=== PATIENT | female | born 1945 | race African-American/Black ===

== ENCOUNTER → 2018-08-05 | Outpatient (CLI) | payer MEDICARE, BC ==
[~2018-08-05] MED LIST: ASPI325T8 PO; ATORVASTATIN CA80 MG PO; FURO-68 PO; LOSA-73 PO; LOSA100T14 PO; LOSA25TA54 PO; METO50TA6 PO; POTA10TA31 PO
--- NOTE | 2018-08-05 13:44 | CARD ---
MR#: [id number] Date of Study: 08/05/2018 Ordering Physician: JOHNNIE AGUILERA, Referring Physician: JOHNNIE AGUILERA, Tech: Milady Jay [facility] APPROVED REPORT EXAM: Two-dimensional and M-mode echocardiogram with Doppler and color Doppler. Other Information Quality : AverageHR: 82bpm Rhythm : NSR INDICATION Shortness of breath 2D DIMENSIONS RVDd3.2 (2.9-3.5cm)Left Atrium(2D)4.3 (1.6-4.0cm) IVSd1.7 (0.7-1.1cm)Aortic Root(2D)2.6 (2.0-3.7cm) LVDd3.8 (3.9-5.9cm)LVOT Diameter1.8 (1.8-2.4cm) PWd1.1 (0.7-1.1cm)LVDs2.7 (2.5-4.0cm) FS (%) 29.9 %SV36.6 ml LVEF(%)57.7 (>50%) M-Mode DIMENSIONS Left Atrium(MM)4.89 (2.5-4.0cm)Aortic Root2.85 (2.2-3.7cm) Aortic Valve AoV Peak Keyur.221.1cm/sAoV VTI41.9cm AO Peak GR.19.6mmHgLVOT Peak Keyur.96.7cm/s AO Mean GR.8mmHgAVA (VMAX)1.13cm2 MAXIMILIAN (VTI)1.10cm2 Mitral Valve MV E Poefpvjn05.8cm/sMV DECEL PVFY886ef MV A Chpoptiy185.2cm/sE/A Ratio1.0 MV A Pwwntlam710be Pulmonary Valve PV Peak Dkxvsign387.2cm/s Tricuspid Valve TR P. Lsebxisv462mx/sRAP OYKYAMXN53icPi TR Peak Gr.13uvNpABGS35esCr LEFT VENTRICLE The left ventricle is normal size. Proximal septal thickening is noted. The left ventricular systolic function is normal. The Ejection Fraction is 55-60%. There is normal LV segmental wall motion. Trans mitral Doppler flow pattern is Grade II-pseudonormal filling dynamics. RIGHT VENTRICLE The right ventricle is normal size. There is normal right ventricular wall thickness. The right ventr icular systolic function is normal. ATRIA The left atrium is mildly dilated. The right atrium is mildly dilated. The interatrial septum is inta ct with no evidence for an atrial septal defect or patent foramen ovale as noted on 2-D or Doppler im aging. AORTIC VALVE The aortic valve is calcified but opens well. The aortic valve is trileaflet. Doppler and Color Flow revealed no significant aortic regurgitation. There is no significant aortic valvular stenosis. MITRAL VALVE The mitral valve is normal in structure and function. There is no evidence of mitral valve prolapse. There is no mitral valve stenosis. Doppler and Color-flow revealed mild mitral regurgitation. TRICUSPID VALVE The tricuspid valve is normal in structure and function. Doppler and Color Flow revealed mild tricusp id regurgitation. There is severe pulmonary hypertension. The PA pressure was estimated at 78 mmHg. T here is no tricuspid valve prolapse or vegetation. There is no tricuspid valve stenosis. PULMONIC VALVE The pulmonary valve is normal in structure and function. Doppler and Color Flow revealed no pulmonic valvular regurgitation. There is no pulmonic valvular stenosis. GREAT VESSELS The aortic root is normal in size. The ascending aorta is normal in size. The IVC is dilated and scott apses <50% with inspiration. PERICARDIAL EFFUSION There is no evidence of significant pericardial effusion. Critical Notification Critical Value: No <Conclusion> The left ventricular systolic function is normal. The Ejection Fraction is 55-60%. There is normal LV segmental wall motion. The left atrium is mildly dilated. Mild mitral regurgitation. Mild tricuspid regurgitation. There is severe pulmonary hypertension. The PA pressure was estimated at 78 mmHg. There is no evidence of significant pericardial effusion. Signed by : Nav Ha, Electronically Approved : 08/05/2018 13:44:14
== END | disposition home or self-care (01) ==
LOC: ECHO 12:45
PROVIDERS: ATTEND Internal Medicine Cardiovascular Disease
DX: I08.1 Rheumatic disorders of both mitral and tricuspid valves (principal); I27.20 Pulmonary hypertension, unspecified; I25.810 Atherosclerosis of coronary artery bypass graft(s) without angina pectoris
CPT/HCPCS: 93306

== ENCOUNTER → 2019-03-10 | Outpatient (CLI) | payer MEDICARE, BC ==
[~2019-03-10] MED LIST changes: +ZOLPIDEM 5 MG TABLET. PO ONE
--- NOTE | 2019-03-18 09:48 | SLEEP ---
DATE OF STUDY: 03/10/2019 ATTENDING PHYSICIAN: Caesar Ascencio MD. REFERRING PHYSICIAN: Lawrence Lund MD. The patient is 73 years old, who weighs 258 pounds with a BMI of 42. The patient's Cruger score was 12. The patient had sleep study 5 years ago and was positive for AZAM, but has gained more than 50 pounds since then, with return of daytime hypersomnia and this split night study was performed. During the night study, the patient spent 415 minutes in bed and slept for 365 minutes with a sleep efficiency of 88%. Sleep latency was 7 minutes with a REM latency of 132 minutes. Sleep architecture showed normal stage 1 and stage 2 sleep, normal slow wave, and normal REM sleep. During the initial diagnostic portion of the study, the patient slept for 74 minutes. During that time, the patient had no obstructive mixed or central apneas, but 56 hypopneas. The patient's apnea-hypopnea index was 46 per hour with a supine index of 46 per hour. REM sleep was not seen during the diagnostic portion. EKG monitoring revealed an average heart rate of 88 beats per minute, no sustained arrhythmias observed. Nocturnal oximetry study revealed an average oxygen saturation of 97% with the lowest of 77%. A 14% of time oxygen saturation remained less than 90%. No PLMS observed. The patient met the criteria for CPAP initiation. It was started at 5 cm water and titrated up to 18 cm water. At the final pressure, the patient slept for 52 minutes. The patient has had supine sleep, but very minimal REM sleep. The patient's AHI was reduced to 0 per hour and oxygen saturation remained above 95%. The patient used a medium size full face mask. IMPRESSION: 1. Severe sleep apnea-hypopnea syndrome at an AHI of 46 per hour. 2. Nocturnal hypoxia secondary to obstructive sleep apnea, but resolved with CPAP. 3. No clinically significant periodic limb movements. RECOMMENDATIONS: 1. CPAP at 18 cm water completely eliminated the patient's sleep apnea and should be used on a nightly basis. 2. Follow up in 4-6 weeks to assess compliance with CPAP and to document clinical improvement. 3. Weight loss is strongly advised. 4. Avoid 3D SPECIALIST depressants. 5. Cautioned regarding driving until symptoms of sleep apnea resolve with the use of CPAP. ANKUSH HILL MD DR: GERMAIN/junaid JOB#: [id number] / [id number] CAESAR Alvarado MD, GEORGE MD
== END | disposition home or self-care (01) ==
LOC: SLPLAB 18:33
PROVIDERS: ATTEND Internal Medicine Pulmonary Disease
DX: G47.33 Obstructive sleep apnea (adult) (pediatric) (principal); G47.34 Idiopathic sleep related nonobstructive alveolar hypoventilation
CPT/HCPCS: 95810

== ENCOUNTER → 2019-11-10 | Outpatient (CLI) | payer MEDICARE, BC ==
[~2019-11-10] MED LIST changes: -ZOLPIDEM 5 MG TABLET. PO ONE
--- NOTE | 2019-11-10 12:18 | CARD ---
MR#: [id number] Date of Study: 11/10/2019 Ordering Physician: ALESSANDRO ALLAN, Referring Physician: ALESSANDRO ALLAN, Tech: Casi Farmer APPROVED REPORT EXAM: Two-dimensional and M-mode echocardiogram with Doppler and color Doppler. Other Information Quality : FairHR: 83bpm Technically limited study due to body habitus. INDICATION Pulmonary Hypertention RISK FACTORS Hypertension 2D DIMENSIONS RVDd3.4 (2.9-3.5cm)Left Atrium(2D)3.6 (1.6-4.0cm) IVSd1.1 (0.7-1.1cm)Aortic Root(2D)2.9 (2.0-3.7cm) LVDd4.8 (3.9-5.9cm)PWd1.0 (0.7-1.1cm) LVDs3.3 (2.5-4.0cm)FS (%) 31.9 % SV65.8 ml Aortic Valve AoV Peak Keyur.197.7cm/sAoV VTI39.6cm AO Peak GR.15.6mmHgLVOT Peak Keyur.128.3cm/s LVOT VTI 28.80cmAO Mean GR.9mmHg Mitral Valve MV E Vijzveqz714.1cm/sMV DECEL HPAE509tm MV A Yqptrtmz55.9cm/sMV E Mean Gr.2mmHg MV LZB11tmX/A Ratio2.1 MVA (PHT)5.38cm2 TDI E/Lateral E'15.4E/Medial E'12.3 Pulmonary Valve PV Peak Piaafqvg354.2cm/sPV Peak Grad.4mmHg Tricuspid Valve TR P. Fcgjckyl742vi/sRAP OQIZTRAB25ffFj TR Peak Gr.97ohXuKQFY98xpXu LEFT VENTRICLE The left ventricle is normal size. There is borderline concentric left ventricular hypertrophy. The l eft ventricular systolic function is normal and the ejection fraction is within normal range. The Eje ction Fraction is 60-65%. There is normal LV segmental wall motion. Transmitral Doppler flow pattern is Grade II-pseudonormal filling dynamics. RIGHT VENTRICLE The right ventricle is mildly dilated. There is normal right ventricular wall thickness. The right ve ntricular systolic function is normal. ATRIA The left atrium size is normal. The right atrium size is normal. The interatrial septum is intact wit h no evidence for an atrial septal defect or patent foramen ovale as noted on 2-D or Doppler imaging. AORTIC VALVE The aortic valve is normal in structure and function. Doppler and Color Flow revealed no significant aortic regurgitation. There is no significant aortic valvular stenosis. MITRAL VALVE The mitral valve is normal in structure and function. There is no evidence of mitral valve prolapse. There is no mitral valve stenosis. Doppler and Color-flow revealed trace mitral regurgitation. TRICUSPID VALVE The tricuspid valve is normal in structure and function. Doppler and Color Flow revealed mild tricusp id regurgitation with an estimated PAP of 67 mmHg. There is no tricuspid valve stenosis. PULMONIC VALVE The pulmonic valve is not well visualized. Doppler and Color Flow revealed no pulmonic valvular regur gitation. GREAT VESSELS The aortic root is normal in size. The IVC is dilated and collapses <50% with inspiration. PERICARDIAL EFFUSION There is no evidence of significant pericardial effusion. Critical Notification Critical Value: No <Conclusion> The left ventricle is normal size. The left ventricular systolic function is normal and the ejection fraction is within normal range. The Ejection Fraction is 60-65%. There is borderline concentric left ventricular hypertrophy. Doppler and Color Flow revealed no significant aortic regurgitation. There is no significant aortic valvular stenosis. Doppler and Color-flow revealed trace mitral regurgitation. Doppler and Color Flow revealed mild tricuspid regurgitation with an estimated PAP of 67 mmHg. Signed by : Jose Ramon Larose MD Electronically Approved : 11/10/2019 12:17:58
== END | disposition home or self-care (01) ==
LOC: ECHO 09:49
PROVIDERS: ATTEND Internal Medicine Pulmonary Disease
DX: I07.1 Rheumatic tricuspid insufficiency (principal); I27.20 Pulmonary hypertension, unspecified
CPT/HCPCS: 93306

== ENCOUNTER → 2020-05-17 | Outpatient (CLI) | payer MEDICARE, BC ==
[~2020-05-17] MED LIST changes: +AMLO10TA4 PO; +ASPI-630 PO; +ERGO500027 PO; +FURO40TA4 PO; +HYDR-3164 PO; +TRAM50TA PO
== END ==
LOC: LAB 11:43
PROVIDERS: ATTEND Orthopaedic Surgery
DX: Z01.812 Encounter for preprocedural laboratory examination (principal); Z20.828 Contact with and (suspected) exposure to other viral communicable diseases
CPT/HCPCS: U0003

== ENCOUNTER 2020-05-20 06:12 | Day surgery (SDC) | payer MEDICARE, BC ==
[~2020-05-20] VITALS: Ht 167.6 cm; Wt 133.0 kg
[~2020-05-20 06:12] MED LIST changes: -HYDR-3164 PO; +ceFAZolin SODIUM 3 GM in IV DEXTROSE 5% 100ML 100 ML IV PRN
[2020-05-20] MEDS ORDERED: LIDOCAINE 1% PF 30 ML VIAL. ONE (06:22)
[2020-05-20] MEDS ORDERED: PROPOFOL 10 MG/ML (20ML) VIAL. IV ONE ×2 (06:25→08:05)
[2020-05-20] MEDS ORDERED: LIDOCAINE 2% PF 5 ML VIAL. ONE (06:25)
[2020-05-20] MEDS ORDERED: PROCHLORPERAZINE 10 MG/2 ML VIAL. IV PRN (07:00)
[2020-05-20] MEDS ORDERED: HYDROmorphone 2 MG/ML VIAL IV PRN (07:00)
[2020-05-20] MEDS ORDERED: LIDOCAINE 1% PF 2 ML VIAL. ID PRN (07:00)
[2020-05-20] MEDS ORDERED: IV RINGERS,LACTATED 1000ML 1,000 ML IV SCH (07:00)
[2020-05-20] MEDS ORDERED: MORPHINE SULFATE 2 MG/ML VIAL. IV PRN (07:00)
[2020-05-20] MEDS ORDERED: fentaNYL PF VIAL 100 MCG/2 ML VIAL IV PRN ×2 (07:00)
[2020-05-20] MEDS ORDERED: ONDANSETRON PF 4 MG/2 ML VIAL. IV PRN (07:00)
--- NOTE | 2020-05-20 07:07 | EKG ---
[facility] [address] [place] [address] Test Date: 2020-05-20 Test Time: 06:39:43 Pat Name: RUMA SERVIN Department: Room: Gender: F Elevated Motorman: RAYNE : 1945 Requested By: MANUEL BREWER Order Number: [id number] Reading MD: Measurements Intervals [place] Rate: 68 P: 60 SC: 142 QRS: 24 QRSD: 112 T: 28 QT: 396 QTc: 421 Interpretive Statements SINUS RHYTHM R-S TRANSITION ZONE IN V LEADS DISPLACED TO THE RIGHT INCOMPLETE RIGHT BUNDLE BRANCH BLOCK RVH WITH REPOLARIZATION ABNORMALITY ABNORMAL ECG RI6.02 Compared to ECG 02/24/2012 20:50:34 Incomplete right bundle-branch block now present Right ventricular hypertrophy now present Early repolarization now present T-wave abnormality no longer present
[2020-05-20] MEDS ORDERED: BUPIVACAINE MPF 0.5% 30 ML VIAL. ONE (07:15)
[2020-05-20 07:19] LABS: CALCIUM 9.6 mg/dL (8.5-10.1); CREATININE 1.2 mg/dL (0.6-1.0); GFR 53.3; POTASSIUM 4.2 mmol/L (3.5-5.1)
[2020-05-20] MEDS ORDERED: SEVOFLURANE 31 TO 60 MINUTES. IH ONE (08:59)
[2020-05-20] MEDS ORDERED: ONDANSETRON PF 4 MG/2 ML VIAL. ONE (09:00)
[2020-05-20] MEDS ORDERED: DEXAMETHASONE SOD PHOS 4 MG/ML VIAL ONE (09:00)
[2020-05-20] MEDS ORDERED: HYDROcodone/APAP 5/325MG 1 TAB TABLET PO ONE (09:15)
[2020-05-20] MEDS ORDERED: HYDROcodone/APAP 5/325MG 1 TAB TABLET PO PRN (09:15)
[2020-05-20] MEDS ORDERED: HYDR-3164 PO (09:21)
--- NOTE | 2020-05-20 09:24 | DISCH ---
DISCHARGE INSTRUCTIONS Condition on Discharge Condition on Discharge: Stable Activity After Discharge Activity Instructions for Disc: Other, see below (Avoid hard grasping but fine motor use such as eating writing typing are allowed) Weight Bearing Status after Di: As tolerated Diet after Discharge Diet after Discharge: Regular Wound Incision Care Wound/Incision Care: Ice to area for comfort, Do not change dressing (Keep dressing intact for protection unless it becomes soiled) Contacting the DRPattie after DC Call your doctor for: Concerns you may have Follow-Up Follow up with: Dr. Churchill 10 days MANUEL CHURCHILL MD May 20, 2020 09:24
[2020-05-20 09:35] VITALS: BP 149/71
[2020-05-20 10:29] LABS: BASO % 0 % (0-3); EOS # 0.1 x10^3/uL (0.0-0.7); EOS % 1 % (0-3); HEMATOCRIT 39.8 % (36.0-47.0); HEMOGLOBIN 12.7 g/dL (12.0-15.5); LYMPH # 1.6 x10^3/uL (1.0-4.8); LYMPH % 32 % (24-48); MEAN CORPUSCULAR HEMOGLOBIN 28 pg (25-35); MEAN CORPUSCULAR HGB CONC 32 g/dL (31-37); MEAN CORPUSCULAR VOLUME 87 fL (79-100); MONO # 0.4 x10^3/uL (0.0-1.1); MONO % 9 % (0-9); NEUT % 58 % (31-73); PLATELET COUNT 179 x10^3/uL (140-400); RED BLOOD COUNT 4.56 x10^6/uL (3.50-5.40); RED CELL DISTRIBUTION WIDTH 15.4 % (11.5-14.5); WHITE BLOOD COUNT 5.1 x10^3/uL (4.0-11.0)
--- NOTE | 2020-05-20 15:22 | PDOC4 ---
Operative Note Operative Note Date of surgery: 05/20/2020 Preoperative diagnosis: Bilateral carpal tunnel syndrome right worse than left Postoperative diagnosis: Right carpal tunnel syndrome with moderate median nerve compression at release Operative procedure: Right carpal tunnel release Surgeon: Kerline Anesthesia: General Estimated blood loss: 1 cc Complications: None Operative indications: Patient has bilateral carpal tunnel syndrome documented by EMG and more severe symptoms on the right side than the left unresponsive to nonoperative management. We talked through risk benefits postoperative course of carpal tunnel release including the possibility of incomplete relief nerve or blood vessel damage medical or other anesthetic complications among others all her questions were answered and she wishes to proceed with surgical evaluation and treatment. Operative text: Patient was identified procedure verified patient placed in the supine position on the operating table. After adequate amounts of general anesthesia were administered the right upper extremity was prepped and draped in standard sterile fashion with an upper arm tourniquet. After timeout was performed patient procedure identified and verified the right upper extremity was exsanguinated by Esmarch bandage tourniquet inflated to 250 mmHg. A longitudinal incision was made just distal to the distal wrist crease within Kayce's lines and dissection carried out down to the transverse carpal ligament that was divided sharply initially with a scalpel and then subsequently proximally and distally with small Metzenbaum scissors verifying complete release of the ligament. Tendons were noted to be free from any synovitis or other compromise and median nerve was noted to have moderate compression. There irrigation carried out normal saline solution skin closure accomplished with interrupted nylon suture sterile dressings were applied fingers were noted to be warm pink following deflation of the tourniquet patient was returned to recovery room in stable condition having tolerated procedure well MANUEL BREWER MD May 20, 2020 15:22
== END 2020-05-20 10:10 | disposition home or self-care (01) ==
LOC: SURG 06:12
PROVIDERS: ATTEND Orthopaedic Surgery
DX: G56.01 Carpal tunnel syndrome, right upper limb (principal); I10 Essential (primary) hypertension; I25.810 Atherosclerosis of coronary artery bypass graft(s) without angina pectoris; I87.2 Venous insufficiency (chronic) (peripheral); G47.34 Idiopathic sleep related nonobstructive alveolar hypoventilation; M19.90 Unspecified osteoarthritis, unspecified site; G47.33 Obstructive sleep apnea (adult) (pediatric); I27.20 Pulmonary hypertension, unspecified; Z95.1 Presence of aortocoronary bypass graft; Z88.2 Allergy status to sulfonamides; Z79.899 Other long term (current) drug therapy; Z98.890 Other specified postprocedural states; Z79.82 Long term (current) use of aspirin
CPT/HCPCS: 36415; 64721; 80048; 85025; 93005; J1100; J2405; J2704; J3490

== ENCOUNTER → 2020-08-01 | Outpatient (CLI) | payer MEDICARE, BC ==
[~2020-08-01] MED LIST changes: +HYDR-3164 PO; -ceFAZolin SODIUM 3 GM in IV DEXTROSE 5% 100ML 100 ML IV PRN
--- NOTE | 2020-08-01 13:52 | CARD ---
MR#: [id number] Date of Study: 08/01/2020 Ordering Physician: ALESSANDRO ALLAN, Referring Physician: ALESSANDRO ALLAN, Tech: Vanessa Winkler [facility] APPROVED REPORT EXAM: Two-dimensional and M-mode echocardiogram with Doppler and color Doppler. Other Information Quality : AverageHR: 74bpm Rhythm : NSR INDICATION CAD RISK FACTORS Hypertension Obesity Hyperlipidemia 2D DIMENSIONS RVDd3.4 (2.9-3.5cm)Left Atrium(2D)4.3 (1.6-4.0cm) IVSd1.7 (0.7-1.1cm)Aortic Root(2D)2.6 (2.0-3.7cm) LVDd3.9 (3.9-5.9cm)LVOT Diameter2.0 (1.8-2.4cm) PWd1.2 (0.7-1.1cm)LVDs3.1 (2.5-4.0cm) FS (%) 19.5 %SV26.9 ml Aortic Valve AoV Peak Keyur.191.5cm/sAoV VTI43.3cm AO Peak GR.14.7mmHgLVOT Peak Keyur.110.7cm/s AO Mean GR.8mmHgAVA (VMAX)1.81cm2 Mitral Valve MV E Szibyibs057.1cm/sMV DECEL EOLH223jm MV A Oawzmqje41.2cm/sE/A Ratio1.4 Pulmonary Valve PV Peak Wtjqdrdq59.3cm/s Tricuspid Valve TR P. Tigbwdwg170ov/sTR Peak Gr.53mmHg Pulmonary Vein S1 Ycsdumob26.6cm/sD2 Yllqvukq98.2cm/s PVa fdbntcem796trfy LEFT VENTRICLE The left ventricle is normal size. There is mild concentric left ventricular hypertrophy. The left ve ntricular systolic function is normal. The ejection fraction is 60-65%. There is normal LV segmental wall motion. RIGHT VENTRICLE The right ventricle is normal size. The right ventricle is borderline hypertrophied. Systolic functio n is mildly reduced. ATRIA The left atrium size is normal. The right atrium size is normal. The interatrial septum is intact wit h no evidence for an atrial septal defect or patent foramen ovale as noted on 2-D or Doppler imaging. AORTIC VALVE The aortic valve is normal in structure and function. Doppler and Color Flow revealed no significant aortic regurgitation. There is no significant aortic valvular stenosis. MITRAL VALVE The mitral valve is normal in structure and function. There is no evidence of mitral valve prolapse. There is no mitral valve stenosis. Doppler and Color-flow revealed mild mitral regurgitation. TRICUSPID VALVE The tricuspid valve is normal in structure and function. Doppler and Color Flow revealed mild tricusp id regurgitation. Estimated PAP 63 mmHg. There is no tricuspid valve stenosis. PULMONIC VALVE The pulmonary valve is normal in structure and function. Doppler and Color Flow revealed trace pulmon ic valvular regurgitation. GREAT VESSELS The aortic root is normal in size. The ascending aorta is normal in size. The IVC is dilated and scott apses >50% with inspiration. PERICARDIAL EFFUSION There is no evidence of significant pericardial effusion. Critical Notification Critical Value: No <Conclusion> The left ventricular systolic function is normal. The ejection fraction is 60-65%. There is normal LV segmental wall motion. Mild mitral regurgitation. Mild tricuspid regurgitation. Estimated PAP 63 mmHg. There is no evidence of significant pericardial effusion. Signed by : Nav Ha, Electronically Approved : 08/01/2020 13:52:05
== END ==
LOC: ECHO 08:30
PROVIDERS: ATTEND Internal Medicine Pulmonary Disease
DX: I08.1 Rheumatic disorders of both mitral and tricuspid valves (principal); I27.20 Pulmonary hypertension, unspecified
CPT/HCPCS: 93306

== ENCOUNTER → 2020-08-09 | Outpatient (CLI) | payer MEDICARE, BC ==
--- NOTE | 2020-08-09 12:57 | RAD ---
EXAM: Bilateral lower extremity arterial Doppler sonogram. HISTORY: Claudication. Atherosclerosis. TECHNIQUE: Chacko scale and color Doppler sonographic imaging of the lower extent of the arteries with spectral waveform analysis was performed. COMPARISON: None. FINDINGS: There are biphasic waveforms throughout the left lower extremity arteries and triphasic and biphasic waveforms throughout the right lower cavity arteries, with exception of a monophasic wavefo rm within the right dorsalis pedis artery. The bilateral peroneal arteries are not seen. There is an elevated peak systolic velocity within the distal right superficial femoral artery, measuring 434 cc/ s. There is an elevated peak systolic velocity within the left anterior tibial artery, measuring 347 cm/s. IMPRESSION: 1. Severely elevated peak systolic velocities within the distal right superficial femoral artery and left anterior tibial artery, likely due to severe stenosis. 2. Abnormal monophasic waveform within the right dorsalis pedis artery due to hemodynamically signifi cant proximal stenosis. 3. Nonvisualization of the bilateral peroneal arteries. Electronically signed by: Shabana Corral MD (08/09/2020 12:55 PM) [id number]
== END ==
LOC: US 11:46
PROVIDERS: ATTEND Family Medicine
DX: I73.9 Peripheral vascular disease, unspecified (principal)
CPT/HCPCS: 93925